=== PATIENT | female | born 1990 | race Caucasian/White ===

== ENCOUNTER 2024-01-26 23:58 | Emergency (ER) | payer BC ==
[~2024-01-26] VITALS: Ht 172.7 cm; Wt 55.3 kg
[2024-01-27] MEDS ORDERED: DIAZEPAM 2 MG TABLET ONE (00:32)
[2024-01-27] MEDS: DIAZEPAM 2 MG TABLET PO ONE (00:35)
[2024-01-27] MEDS ORDERED: DIAZ10TA PO (00:37)
[2024-01-27] MEDS ORDERED: DIAZ2TAB PO (00:37)
[2024-01-27 00:50] VITALS: BP 123/75; TEMP 97.7; O2SAT 100
== END 2024-01-27 00:46 | disposition home or self-care (01) ==
LOC: ER 01-27 00:06
DX: R06.00 Dyspnea, unspecified (principal); J45.909 Unspecified asthma, uncomplicated; Z98.890 Other specified postprocedural states; Z60.2 Problems related to living alone; Z88.0 Allergy status to penicillin
CPT/HCPCS: A4606; A4663